=== PATIENT | female | born 1980 ===

== ENCOUNTER → 2017-05-16 | Day surgery (SDC) | payer OTHER ==
[~2017-05-16] VITALS: Ht 157.4 cm; Wt 123.4 kg
[~2017-05-16] MED LIST: OMEPRAZOLE40 MG PO
[2017-05-16 08:55] VITALS: BP 111/61
[2017-05-16 10:25] VITALS: BP 101/53
[2017-05-16 10:55] VITALS: BP 115/77
== END | disposition home or self-care (01) ==
LOC: SDC 05-11 14:00
DX: K29.50 Unspecified chronic gastritis without bleeding (principal); K21.9 Gastro-esophageal reflux disease without esophagitis; Z90.49 Acquired absence of other specified parts of digestive tract; F17.210 Nicotine dependence, cigarettes, uncomplicated; Z98.890 Other specified postprocedural states; Z79.899 Other long term (current) drug therapy